=== PATIENT | male | born 1990 | race Two or more races ===

== ENCOUNTER 2022-10-18 20:55 | Emergency (ER) | payer MEDICAID, OTHER ==
[~2022-10-18] VITALS: Ht 190.5 cm; Wt 109.0 kg
[2022-10-18 23:10] VITALS: BP 123/78
[2022-10-18] MEDS ORDERED: AMOX875T4 PO (23:39)
[2022-10-18] MEDS ORDERED: KETOROLAC TROMETH 30 MG/ML 1ML VIAL IM ONE (23:45)
== END 2022-10-18 23:51 | disposition home or self-care (01) ==
LOC: ER 20:55
DX: K04.7 Periapical abscess without sinus (principal)
CPT/HCPCS: 96372; 99283; J1885

== ENCOUNTER 2023-01-05 07:02 | Emergency (ER) | payer MEDICAID ==
[~2023-01-05] VITALS: Ht 190.5 cm; Wt 101.5 kg
[~2023-01-05 07:02] MED LIST: AMOX875T4 PO
[2023-01-05 07:40] VITALS: BP 113/76; PULSE 99; RESP 18; TEMP 98.2; O2SAT 96
[2023-01-05 08:43] LABS: Urine Amorphous Crystal FEW /hpf (None Seen); Urine Bacteria NONE SEEN /hpf (None Seen); Urine Blood Negative /uL (Negative); Urine Mucus FEW (None Seen); Urine WBC 121 /hpf (0 - 3); Urine WBC Clumps PRESENT /hpf (None Seen)
[2023-01-05] MEDS ORDERED: LIDOCAINE 1% HCL (LOCAL ANESTH.) INJ 20ML MDV ONE (08:51)
[2023-01-05] MEDS ORDERED: DOXY-447 PO (08:51)
[2023-01-05] MEDS ORDERED: cefTRIAXone SOD 1,000 MG VL IM ONE (09:00)
[2023-01-05] MEDS ORDERED: LIDOCAINE 1% HCL (LOCAL ANESTH.) INJ 20ML MDV IJ ONE (09:00)
== END 2023-01-05 09:06 | disposition home or self-care (01) ==
LOC: ER 07:02
DX: N34.2 Other urethritis (principal); Z20.2 Contact with and (suspected) exposure to infections with a predominantly sexual mode of transmission; F17.210 Nicotine dependence, cigarettes, uncomplicated; Z79.2 Long term (current) use of antibiotics
CPT/HCPCS: 81001; 87491; 87591; 96372; 99283; J0696; J2001

== ENCOUNTER 2023-01-20 18:43 | Emergency (ER) | payer MEDICAID ==
[~2023-01-20] VITALS: Ht 190.5 cm; Wt 102.4 kg
[~2023-01-20 18:43] MED LIST changes: +DOXY-447 PO
[2023-01-20 19:49] VITALS: BP 111/70; PULSE 81; RESP 16; O2SAT 95
[2023-01-20 21:18] LABS: Urine Bacteria NONE SEEN /hpf (None Seen); Urine Blood Negative /uL (Negative); Urine Clarity HAZY (Clear); Urine Color Yellow (Yellow); Urine Mucus FEW (None Seen); Urine Protein, UAD 1+ (Negative); Urine Specific Gravity 1.037 (1.001-1.035); Urine Urobilinogen Normal (Negative); Urine WBC 26 /hpf (0 - 3)
[2023-01-20] MEDS ORDERED: AZITHROMYCIN 250 MG TAB PO ONE (21:45)
[2023-01-20] MEDS ORDERED: cefTRIAXone SOD 1,000 MG VL IM ONE (21:45)
[2023-01-20] MEDS ORDERED: DOXY100C4 PO (21:54)
[2023-01-24 03:06] LABS: Chlamydia Trachomatis, NAA Negative (Negative); Neisseria gonorrhoeae, NAA Positive (Negative)
== END 2023-01-21 00:34 | disposition home or self-care (01) ==
LOC: ER 18:43
DX: N34.2 Other urethritis (principal); F17.210 Nicotine dependence, cigarettes, uncomplicated; F12.90 Cannabis use, unspecified, uncomplicated; F15.90 Other stimulant use, unspecified, uncomplicated
CPT/HCPCS: 81001; 87491; 87591; 96372; 99283; J0696; 86256

== ENCOUNTER 2023-06-27 17:30 | Emergency (ER) | payer MEDICAID ==
[~2023-06-27] VITALS: Ht 190.5 cm; Wt 104.5 kg
[~2023-06-27 17:30] MED LIST changes: +DOXY100C4 PO
[2023-06-27 18:15] LABS: Urine Epithelial Cast None Seen /hpf (<5)
[2023-06-27 18:34] LABS: Basophils # (auto) 0.1 10 ^3/uL (0-0.2); Basophils % (auto) 0.7 % (0.0-2.0); Eosinophils # (auto) 0.1 10 ^3/uL (0-0.8); Eosinophils % (auto) 1.3 % (0.0-7.0); Hematocrit 43.3 % (41.0-53.0); Hemoglobin 14.5 g/dL (13.5-17.5); Lymphocytes # (auto) 1.6 10 ^3/uL (0.4-5.4); Lymphocytes % (auto) 17.9 % (10.0-50.0); Mean Corpuscular Hemoglobin 28.1 pg (28.0-32.0); Mean Corpuscular Hgb Conc. 33.4 g/dL (32.0-36.0); Mean Corpuscular Volume 84.3 fL (80.0-100.0); Monocytes # (auto) 0.6 10 ^3/uL (0-1.3); Monocytes % (auto) 6.5 % (0.0-12.0); Neutrophils # (auto) 6.5 10 ^3/uL (1.6-8.6); Neutrophils % (auto) 73.6 % (37.0-80.0); Nucleated Red Blood Cells % 0.1 %; Red Blood Cells 5.13 10^6/uL (4.5-5.90); Red Cell Distribution Width 13.4 % (11.8-14.3); White Blood Cell 8.9 10^3/uL (4.4-10.8)
[2023-06-27 18:38] LABS: Urine Amorphous Crystal FEW /hpf (None Seen); Urine Bacteria NONE SEEN /hpf (None Seen); Urine Blood Negative /uL (Negative); Urine Clarity HAZY (Clear); Urine Color Colorless (Yellow); Urine Protein, UAD Negative (Negative); Urine Specific Gravity 1.015 (1.001-1.035); Urine Urobilinogen Normal (Negative); Urine WBC 2 /hpf (0 - 3); Urine pH 7.5 (5.0-8.0)
[2023-06-27 18:54] LABS: Amphetamine Screen, Urine Pos (NEGATIVE); Benzodiazephine Screen, Urine Neg (NEGATIVE)
[2023-06-27 18:55] LABS: Barbiturate Scree,Urine Neg (NEGATIVE); Cannabinoid Screen, Urine Neg (NEGATIVE); Cocaine Screen, Urine Neg (NEGATIVE); Opiate Scree,Urine Neg (NEGATIVE); Phencyclidine Screen, Urine Pos (NEGATIVE)
[2023-06-27 18:57] LABS: Alanine Aminotransferase 60 U/L (7-40); Albumin 4.6 g/dL (3.2-4.8); Alkaline Phosphatase 89 U/L (46-116); Anion Gap 6 (5-15); Aspartate Aminotransferase 44 U/L (13-40); BUN/Creatinine Ratio 6.9 (10.0-20.0); Bilirubin, Total 0.5 mg/dL (0.2-1.0); Blood Urea Nitrogen 7 mg/dL (9-23); Calcium 9.6 mg/dL (8.5-10.1); Carbon Dioxide 25 mmol/L (20-30); Chloride 105 mmol/L (98-107); Glucose 103 mg/dL (74-106); Potassium 3.6 mmol/L (3.5-5.1); Sodium 136 mmol/L (136-145); Total Protein 7.6 g/dL (5.7-8.2)
[2023-06-27 19:41] VITALS: BP 132/68; PULSE 94; RESP 18; TEMP 98; O2SAT 98
== END 2023-06-27 19:47 | disposition home or self-care (01) ==
LOC: ER 17:30 → EDBD 17:30 → ER 19:47
DX: R42 Dizziness and giddiness (principal); F15.129 Other stimulant abuse with intoxication, unspecified; K92.0 Hematemesis; F17.210 Nicotine dependence, cigarettes, uncomplicated; F12.10 Cannabis abuse, uncomplicated; F15.10 Other stimulant abuse, uncomplicated; Z79.899 Other long term (current) drug therapy
CPT/HCPCS: 36415; 80053; 80307; 81001; 85025; 93005